=== PATIENT | female | born 1970 | race Two or more races ===

== ENCOUNTER 2016-07-31 11:15 | Emergency (ER) | payer SELFPAY ==
[2016-07-31 11:33] VITALS: BP 119/77
[2016-07-31] MEDS ORDERED: NAPROXEN 500 MG TABLET PO STA (12:55)
[2016-07-31] MEDS ORDERED: DIAZEPAM 5 MG TABLET PO ONE (13:00)
[2016-07-31] MEDS ORDERED: HYDROCODONE/APAP 5/325MG TABLET. PO ONE (13:00)
[2016-07-31] MEDS ORDERED: DIAZ5TAB PO (13:27)
[2016-07-31] MEDS ORDERED: NAPR500T8 PO (13:27)
--- NOTE | 2016-07-31 13:28 | PHYS DOC ---
Past Medical History Past Medical History: No Pertinent History Past Surgical History: Hysterectomy Additional Past Surgical Histo: Partial hysterectomy. Alcohol Use: None Drug Use: None, Marijuana Adult General Chief Complaint Chief Complaint: ANXIETY/PANIC ATTACK HPI HPI Patient is a 45 year old female with history of chronic back pain who presents today with overwhelming stress. Patient is very tearful. She states she's had multiple stressors in her life, she states she moved from [place] to [place] a couple years ago. Patient states she has 2 children in [place]. She states one is going through a divorce which patient is not happy about and the other one is doing drugs which patient states she has no control over. 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 Patient states she cannot find piece at work, she states she cannot find piece at home. She is very tearful and crying. Patient denies any suicidal homicidal ideations. Review of Systems Review of Systems Constitutional: Denies fever or chills [] Eyes: Denies change in visual acuity, redness, or eye pain [] HENT: Denies nasal congestion or sore throat [] Respiratory: Denies cough or shortness of breath [] Cardiovascular: No additional information not addressed in HPI [] GI: Denies abdominal pain, nausea, vomiting, bloody stools or diarrhea [] : Denies dysuria or hematuria [] Musculoskeletal: Exacerbation of chronic back pain Integument: Denies rash or skin lesions [] Neurologic: Denies headache, focal weakness or sensory changes [] Endocrine: Denies polyuria or polydipsia [] psych:overwhelming stress Current Medications Current Medications Current Medications Medications (Trade) Dose Ordered Sig/Skye Start Time Stop Time Status Last Admin Dose Admin Acetaminophen/ Hydrocodone Bitart (Lortab 5/325) 1 tab 1X ONCE 07/31/16 13:00 07/31/16 13:01 UNV Diazepam (Valium) 5 mg 1X ONCE 07/31/16 13:00 07/31/16 13:01 UNV Naproxen (Naprosyn) 500 mg 1X STAT 07/31/16 12:55 07/31/16 12:56 UNV Physical Exam Physical Exam Constitutional: Well developed, well nourished, no acute distress, non-toxic appearance. [] HENT: Normocephalic, atraumatic, bilateral external ears normal, oropharynx moist, no oral exudates, nose normal. [] Eyes: PERRLA, EOMI, conjunctiva normal, no discharge. [] Neck: Normal range of motion, no tenderness, supple, no stridor. [] Cardiovascular:Heart rate regular rhythm, no murmur [] Lungs & Thorax: Bilateral breath sounds clear to auscultation [] Abdomen: Bowel sounds normal, soft, no tenderness, no masses, no pulsatile masses. [] Skin: Warm, dry, no erythema, no rash. [] Back: Diffuse tenderness paraspinal muscles of the lower lumbar region, no midline tenderness, no CVA tenderness. [] Extremities: No tenderness, no cyanosis, no clubbing, ROM intact, no edema. [] Neurologic: Alert and oriented X 3, normal motor function, normal sensory function, no focal deficits noted. [] Psychologic: Patient is very tearful, crying out loud Current Patient Data Vital Signs Vital Signs Date Time Temp Pulse Resp B/P Pulse Ox O2 Delivery O2 Flow Rate FiO2 07/31/16 11:33 98.0 74 20 100 Room Air 98.0 EKG EKG [] Radiology/Procedures Radiology/Procedures [] Course & Med Decision Making Course & Med Decision Making Pertinent Labs and Imaging studies reviewed. (See chart for details) Patient is in the ED complaining of overwhelming stress in her life. She has multiple stressors including her children and work. 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 I recommended [facility]. She was discharged with Valium naproxen and Flexeril which will help with her stress as well as her chronic back pain which has been exacerbated with stress. She has good support from the . She is not suicidal or homicidal Dragon Disclaimer Dragon Disclaimer This electronic medical record was generated, in whole or in part, using a voice recognition dictation system. Departure Departure Impression: Primary Impression: Chronic back pain Additional Impression: Stress Disposition: 01 HOME, SELF-CARE Condition: STABLE Referrals: NO PCP (PCP) Follow up with [facility] as soon as you can Patient Instructions: Anxiety and Panic Attacks, [id number], Back Pain, Adult Additional Instructions: You have overwhelming stress going on in your life. Consider following up with [facility]. Consider working on reducing some of the stressors in her life including finding another job or a different position. Return to the emergency room for any worsening condition. Also try and establish care with a PCP/primary care doctor. Scripts Naproxen 500 Mg Tablet.dr1 Tab PO BID #60 TAB Ref 1 Prov:RUPERTO WHEELER APRN 07/31/16 Diazepam (Valium)5 Mg Tablet5 Mg PO TID PRN ANXIETY / AGITATION #14 TAB Prov:RUPERTO WHEELER APRN 07/31/16 Problem Qualifiers Primary Impression: Chronic back pain Back pain location: low back pain Back pain laterality: bilateral Sciatica presence: without sciatica Qualified Code: M54.5 - Low back pain RUPERTO WHEELER APRN Jul 31, 2016 13:27
--- NOTE | 2016-08-01 06:34 | EKG ---
[facility] [address] [place] [address] Test Date: 2016-07-31 Test Time: 12:48:00 Pat Name: MISSY SANTANA Department: Room: Gender: F Instrument Operator: : [id number] Requested By: RUPERTO WHEELER Order Number: [id number] Reading MD: Measurements Intervals [place] Rate: 74 P: 142 [place]: 156 QRS: 95 QRSD: 86 T: 151 QT: 386 QTc: 429 Interpretive Statements SINUS RHYTHM RIGHTWARD AXIS QRS(T) CONTOUR ABNORMALITY CONSIDER ANTEROSEPTAL MYOCARDIAL DAMAGE CONSIDER HIGH LATERAL INFARCT CONSIDER INFERIOR INFARCT POSSIBLY ABNORMAL ECG RI6.01 No previous ECG available for comparison
== END 2016-07-31 13:39 | disposition home or self-care (01) ==
LOC: ER 11:15
DX: F43.9 Reaction to severe stress, unspecified (principal); G89.29 Other chronic pain; M54.9 Dorsalgia, unspecified
CPT/HCPCS: 93005; 99284-25